=== PATIENT | male | born 2000 | race Caucasian/White ===

== ENCOUNTER 2023-08-29 09:28 | Emergency (ER) | payer OTHER ==
[2023-08-29 10:35] LABS: BASOPHILS % (AUTO) 0.6 %; EOSINOPHILS # (AUTO) 0.2 10^3/uL (0.0-0.7); EOSINOPHILS % (AUTO) 4.6 %; HCT - HEMATOCRIT 41.9 % (42.0-52.0); LYMPHOCYTES # (AUTO) 1.8 10^3/uL (1.5-3.5); LYMPHOCYTES % (AUTO) 34.8 %; MEAN CORPUSCULAR HEMOGLOBIN 28.6 pg (27.0-31.0); MEAN CORPUSCULAR HGB CONC 33.4 g/dL (32.0-36.0); MEAN CORPUSCULAR VOLUME 85.5 fL (80.0-94.0); MEAN PLATELET VOLUME 9.6 fL (7.4-11.4); MONOCYTES # (AUTO) 0.4 10^3/uL (0.0-1.0); NEUTROPHILS # (AUTO) 2.6 10^3/uL (1.5-6.6); NEUTROPHILS % (AUTO) 52.4 %; PLT - PLATELET COUNT 200 10^3/uL (130-450); RED CELL DISTRIBUTION WIDTH 12.4 % (12.0-15.0)
[2023-08-29] MEDS: SODIUM CHLORIDE 0.9% 1,000 ML IV STA (10:45)
[2023-08-29 10:46] LABS: ALBUMIN 4.4 g/dL (3.2-5.5); ALBUMIN/GLOBULIN RATIO 2.2 (1.0-2.2); BILIRUBIN,TOTAL 0.4 mg/dL (0.2-1.0); CALCIUM 9.2 mg/dL (8.5-10.3); CREATININE 1.1 mg/dL (0.6-1.3); POTASSIUM 3.9 mmol/L (3.5-4.5); TOTAL PROTEIN 6.4 g/dL (6.4-8.9)
--- NOTE | 2023-08-29 11:05 | ED Physician Documentation ---
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 The patient states that it started a couple months into deployment and that he has been home for about 3 months. The patient states that he is having a flareup currently that started about 4 days ago. He states that every time he eats, he gets a pain across his low abdomen. This has been happening ever since the symptoms started 11 months ago, but he states that he is having blood in his stool recently. He states that when he sits on the toilet, sometimes blood just drips into the toilet bowl. He states he passed a clot recently. The patient denies any lightheadedness or shortness of breath. No bleeding disorders. No known history of diverticulosis/diverticulitis. No history of abdominal surgeries. He is currently awaiting evaluation by GI and [place] No other complaints at this time. PD PAST MEDICAL HISTORY - Past Medical History Past Medical History: Yes Neuro: Migraines - Past Surgical History General: Appendectomy, Colonoscopy - Present Medications Home Medications: Ambulatory Orders Medication Instructions Recorded Confirmed Amitriptyline [Elavil] 25 mg PO DAILY PRN 08/29/23 08/29/23 Rizatriptan Benzoate [Rizatriptan] 10 mg PO DAILY PRN 08/29/23 08/29/23 - Allergies Allergies/Adverse Reactions: Allergies Allergy/AdvReac Type Severity Reaction Status Date / Time No Known Drug Allergies Allergy Verified 08/29/23 09:43 - Social History Does the pt smoke?: No Smoking Status: Never smoker Does the pt drink ETOH?: Yes Does the pt have substance abuse?: No - Immunizations Immunizations are current?: Yes PD ED PE NORMAL - Vitals Vital signs reviewed: Yes - General General: Alert and oriented X 3, No acute distress, Well developed/nourished - HEENT HEENT: Atraumatic, PERRL, EOMI, Moist mucous membranes - Neck Neck: Supple, no meningeal sign - Cardiac Cardiac: RRR, No murmur - Respiratory Respiratory: No respiratory distress, Clear bilaterally - Abdomen Abdomen: Soft, Non distended, Other (Diffuse moderate lower abdominal tenderness, no rebound or guarding.) - Derm Derm: Normal color, Warm and dry, No rash - Extremities Extremities: No deformity, No edema - Neuro Neuro: Alert and oriented X 3 - Psych Psych: Normal mood, Normal affect Results - Vitals Vitals: Vital Signs - 24 hr 08/29/23 08/29/23 08/29/23 09:38 12:15 13:14 Temperature 36.5 C Heart Rate 99 80 78 Respiratory 14 19 15 Rate Blood Pressure 133/80 H 134/67 H 130/80 O2 Saturation 98 99 99 Oxygen O2 Source Room air - Labs Labs: Laboratory Tests 08/29/23 08/29/23 10:26 10:26 WBC 5.0 RBC 4.90 Hgb 14.0 Hct 41.9 L MCV 85.5 MCH 28.6 MCHC 33.4 RDW 12.4 Plt Count 200 MPV 9.6 Neut # (Auto) 2.6 Lymph # (Auto) 1.8 Wolfe # (Auto) 0.4 Eos # (Auto) 0.2 Baso # (Auto) 0.0 Absolute Nucleated RBC 0.00 Nucleated RBC % 0.0 Sodium 140 Potassium 3.9 Chloride 104 Carbon Dioxide 31 Anion Gap 5.0 L BUN 12 Creatinine 1.1 Estimated GFR (MDRD) 85 L Glucose 87 Calcium 9.2 Total Bilirubin 0.4 AST 19 ALT 28 Alkaline Phosphatase 80 Total Protein 6.4 Albumin 4.4 Globulin 2.0 L Albumin/Globulin Ratio 2.2 Lipase 18 - Rads (name of study) CT abd/pelvis Relevant Findings:: Final report received, See rad report (neg) PD Medical Decision Making - ED course Complexity details: reviewed results, re-evaluated patient, considered diffe rential, d/w patient ED course: The patient was given IV fluids and worked up with labs and CT scan of the abdomen and pelvis. Labs and CT were unremarkable. I suspected hemorrhoidal bleeding have advised the patient regarding symptomatic treatment for this. I am not sure what is causing patient's ongoing pain and GI issues, but suspect an exposure to something well and bothering him. The patient is in the process of getting referred to GI and I have discussed with him that this is going to be the best plan for him in terms of outpatient follow-up of this issue. We discussed the usual indications for return. Departure - Departure Disposition: 01 Home, Self Care Clinical Impression: Lower GI bleeding Abdominal pain Qualifiers: Abdominal location: lower abdomen, unspecified Qualified Code(s): R10.30 - Lower abdominal pain, unspecified Hemorrhoids Qualifiers: Hemorrhoid type: unspecified Qualified Code(s): K64.9 - Unspecified hemorrhoids Condition: Stable Instructions: ED Abdominal Pain Unkn Cause Male Comments: Your laboratory studies and CT scan look good. It is not clear why you continue to have abdominal pain and digestive system issues. It is possible that you picked up something exotic while you are and bothering but given that this has been a pretty chronic process, the best plan at this point is to follow-up with the GI specialist. As far as your bleeding, this is most consistent with your hemorrhoids. There is no evidence of anything else that would be causing bleeding on your CT scan. If you continue to have bleeding on and off from your rectum, that colonoscopy would be recommended potentially by the [place] stroenterologist. Please follow-up with your primary doctor for further concerns. You may continue to use the topical hemorrhoid preparation that you have used previously most hemorrhoidal bleeding will stop on its own, but this can be helped by eating a high-fiber diet that keeps your stools soft. Forms: PCP List Discharge Date/Time: 08/29/23 13:16
[2023-08-29] MEDS ORDERED: iohexoL-300 100 ML VIAL ONE (11:23)
[2023-08-29 12:30] VITALS: O2SAT 99
[2023-08-29] MEDS: iohexoL-300 100 ML VIAL IVP ONE (12:47)
--- NOTE | 2023-08-29 12:55 | CT Report ---
PROCEDURE: Abdomen/Pelvis W INDICATIONS: low abd pain/tend, blood in stool. CONTRAST: Omni 300 100ml TECHNIQUE: After the administration of intravenous contrast, a CT scan of the abdomen and pelvis was performed. Images were recorded and evaluated at appropriate window settings. Reformats: coronal and sagittal. F or radiation dose reduction, the following was used: automated exposure control, adjustment of mA and /or kV according to patient size. COMPARISON: None. FINDINGS: Image quality: Diagnostic. Lower chest: Unremarkable. Liver: No solid mass. Gallbladder and biliary tree: Spleen: Splenomegaly. Spleen measures 15 cm in diameter. Pancreas: No pancreatic ductal dilation. Adrenals: No adrenal nodule. Kidneys and ureters: No hydronephrosis. No renal cystic lesion which requires follow up. No solid mas s. Stomach, bowel and peritoneum: No bowel distension. No pathologic free fluid. Lymph nodes: No central or retroperitoneal adenopathy. Vessels: No infrarenal aortic aneurysm. PELVIS Reproductive organs: Unremarkable. Bladder: No abnormal wall thickening, accounting for underdistention. Pelvic lymph nodes: No pelvic adenopathy by size criteria. Bones: No aggressive osseous abnormality. Other: No significant ventral or inguinal hernia. IMPRESSION: 1. At least moderate splenomegaly. 2. No acute abdominal process. Reviewed by: Jefferson Simms MD on 08/29/2023 12:54 PM PST Approved by: Jefferson Simms MD on 08/29/2023 12:54 PM PST Station ID: [id number]
[2023-08-29 13:18] VITALS: BP 130/80
== END 2023-08-29 13:16 | disposition home or self-care (01) ==
LOC: ED 09:28
DX: K92.2 Gastrointestinal hemorrhage, unspecified (principal); K64.9 Unspecified hemorrhoids; R10.30 Lower abdominal pain, unspecified; Z79.899 Other long term (current) drug therapy
CPT/HCPCS: 36415; 74177; 80053; 83690; 85025; 99283; 99284; Q9967